=== PATIENT | male | born 1930 | race Caucasian/White ===

== ENCOUNTER 2016-03-09 18:23 | Emergency (ER) | payer MEDICARE, OTHER ==
[2016-03-09 18:56] VITALS: BP 158/82
--- NOTE | 2016-03-09 19:33 | ERNOTE ---
Medical Problem HPI - Narrative Date of Service: 03/09/16 - General Chief Complaint: Screening, Blood Pressure Time Seen by Provider: 03/09/16 18:49 Source: patient Exam Limitations: no limitations - Immun/Allergies/Home Medications Immunizations: IMMUNIZATION HX Immunizations Up to Date Yes History of Influenza Vaccine No Hx Pneumococcal Vaccination No Allergies/Adverse Reactions: Allergies Sulfa (Sulfonamide Antibiotics) Adverse Reaction (Verified 04/16/15 16:27) Home Medications: HOME MEDICATIONS Doxazosin Mesylate [Cardura Xl] 4 mg PO HS 09/21/13 [Last Taken Unknown] Finasteride [Proscar] 5 mg PO HS 09/21/13 [Last Taken Unknown] Timolol [Betimol] 1 drop OP DAILY 09/21/13 [Last Taken Unknown] metFORMIN HCL [Glucophage] 1,000 mg PO BID 09/21/13 [Last Taken Unknown] Atorvastatin Calcium 40 mg PO DAILY 02/27/15 [Last Taken Unknown] Clopidogrel Bisulfate [Plavix] 75 mg PO DAILY 02/27/15 [Last Taken Unknown] Aspirin [Aspirin Enteric Coated] 81 mg PO BID 04/16/15 [Last Taken Unknown] - History of Present History Narrative: Patient and his present together for BP check. he relates his BP was high at home. He denies Sx. Here his BP was initially taken over a sweater and a shirt. Once these were removed his BP was much improved. He denies Sx with this. BP 150s/80s. No CP or SOB. No abdominal pain. Sx free. Timing: gone now Severity: mild Modifying Factors - (Improves): Present: other - none Modifying Factors - (Worsens): Present: other - none Review of Systems - Review of Systems Constitutional: Absent: weakness Respiratory: Absent: shortness of breath Cardiology: Absent: chest pain Gastrointestinal/Abdominal: Absent: abdominal pain Neurological: Absent: weakness - Patient's Past Medical History Patient History - Medical: Diabetes Type 2 Patient History - Cardiac/Respiratory: Hypertension, TIA Patient History - Cancer: No Hx of Cancer Patient History - Surgical Procedures: Cataracts, Other - Social History Living Situations: spouse Smoking Status: Never smoker Alcohol Use: rarely Drug Use: none Physical Exam - Physical Exam General Appearance: Present: alert, no apparent distress Eye Exam: Normal inspection: bilateral, PERRL: bilateral Ears, Nose, Throat: Present: normal ENT inspection Neck: Present: normal inspection Respiratory: Present: no respiratory distress, normal breath sounds, no accessory muscle use, lungs clear Cardiovascular/Chest: Present: regular rate, rhythm, no murmur, normal peripheral pulses Peripheral Pulses: N=norm/S=strong/W=weak/B=bound/A=absent: Radial (R): Normal, Radial (L): Normal Gastrointestinal/Abdominal: Present: normal bowel sounds, nontender, soft. 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 Absent: motor weakness Skin Exam: Present: normal color ED Progress - Vital Signs Patient's Vital Signs:: I have reviewed the patient's vital signs. Vital Signs: Vital Signs 03/09/16 03/09/16 18:30 18:50 Temperature 36 C L Pulse Rate 77 72 Respiratory 14 Rate Blood Pressure 201/115 158/82 O2 Sat by Pulse 98 Oximetry - Progress/Reassessment Chief Complaint: Screening, Blood Pressure Progress:: Improved Progress Note-Subjective: 03/09/16 19:30 I believe his initial BP was high because it was taken over a long sleeve shirt and sweater. With these removed BP much improved. Given this and fact patient Sx free I do not feel labs or imaging indicated. If he develops Sx or things change he will need to return to have this re-addressed and I discussed this with him. I discussed warning signs and reasons to return as well as the need for close f/u. Departure - Departure Clinical Impression: Blood pressure check Disposition: Home self-care Condition: Stable Additional Instructions: Take your blood pressure at home twice per day and record it. See your doctor in 2 days to discuss your blood pressure readings and any need for further evaluation. Return here if you develop trouble breathing, weakness or if your condition worsens or changes in any way.
== END 2016-03-09 19:41 | disposition home or self-care (01) ==
LOC: ER 18:23
DX: Z13.6 Encounter for screening for cardiovascular disorders (principal); I10 Essential (primary) hypertension; E11.9 Type 2 diabetes mellitus without complications; Z86.73 Personal history of transient ischemic attack (TIA), and cerebral infarction without residual deficits

== ENCOUNTER 2016-04-01 14:38 | Emergency (ER) | payer MEDICARE, OTHER ==
[2016-04-01 15:08] LABS: Hematocrit 38.1 % (42.0-52.0); Mean Cell Volume 85.8 fl (78-100); Mean Corpuscular Hgb Conc 31.5 g/dl (32-36); Mean Platelet Volume 8.9 fl (6.0-9.5); Neutrophil # 3.7 K/mm3 (1.3-6.0); Neutrophil % 66.7 % (42-75.0); Platelet Count 162 K/mm3 (150-450); Red Blood Count 4.44 M/mm3 (4.7-6.0); Red Cell Distribution Width 13.9 % (11.5-14.0); White Blood Count 5.6 K/mm3 (4.0-10.5)
--- NOTE | 2016-04-01 15:08 | ERNOTE ---
Neuro HPI ER Record Date of Service: 04/01/16 Presenting Symptoms: impaired speech - here to bring to ER for rash when he began with slurred speech about 15 mins ago. Time Seen by Provider: 04/01/16 14:49 Source: patient, RN/MD Exam Limitations: no limitations Immunizations: IMMUNIZATION HX Immunizations Up to Date Yes History of Influenza Vaccine No Hx Pneumococcal Vaccination No Allergies/Adverse Reactions: Allergies Allergy/AdvReac Type Severity Reaction Status Date / Time Sulfa (Sulfonamide AdvReac Verified 04/16/15 16:27 Antibiotics) Home Medications: HOME MEDICATIONS Doxazosin Mesylate [Cardura Xl] 4 mg PO HS 09/21/13 [Last Taken Unknown] Finasteride [Proscar] 5 mg PO HS 09/21/13 [Last Taken Unknown] Timolol [Betimol] 1 drop OP DAILY 09/21/13 [Last Taken Unknown] metFORMIN HCL [Glucophage] 1,000 mg PO BID 09/21/13 [Last Taken Unknown] Atorvastatin Calcium 40 mg PO DAILY 02/27/15 [Last Taken Unknown] Clopidogrel Bisulfate [Plavix] 75 mg PO DAILY 02/27/15 [Last Taken Unknown] Aspirin [Aspirin Enteric Coated] 81 mg PO BID 04/16/15 [Last Taken Unknown] - History of Present Illness Narrative: Pt here in the ER as he came with his who had a rash, when the nurse noted he had sudden onset of slurred speech with some confusion about 15 mins ago now. She started a Stroke Protocol and pt. went immediately for head CT from which he has just returned. RN says he seems much better already but still with some slurred speech and mild confusion as to month. he says he has hx of TIA's , maybe 3-4, but none in the past year or so. No h.a. , no trauma, and denies any weakness or altered sensation. - Patient's Past Medical History Patient History - Medical: Diabetes Type 2 Patient History - Cardiac/Respiratory: TIA Patient History - Cancer: No Hx of Cancer Patient History - Surgical Procedures: Cataracts, Other Patient History - Other: None - Social History Living Situations: home Abuse History: No History of abuse Psych History: No pertinent hx Alcohol Use: rarely Drug Use: none - Immunizations Immunizations Up to Date: Yes Hx Pneumococcal Vaccination: No History of Influenza Vaccine: No ED Progress - Vital Signs Vital Signs: Vital Signs 04/01/16 14:52 Temperature 36.6 C Pulse Rate 75 Respiratory 22 H Rate Blood Pressure 133/67 O2 Sat by Pulse 96 Oximetry - X-Ray X-Ray #1 X-Ray: chest Interpretation: Reviewed by me - CT/Ultrasound CT/Ultrasound Narrative: [facility] PATIENT RADIOLOGY STUDY REPORT Patient Patient Name:LUCILA ADAMS JR Date: 1930 Sex: M Order Number: [id number] Unique Exam ID: [id number] Exam Requested: HEADW/O - CT Head W/O Contrast * Date Scheduled: Study Priority: Requesting Service: Requesting Physician: Geovany Carson Reason for Exam: Radiological Report : Exam Date: 04/01/2016 14:46 Ordering Physician: Geovany Carson HISTORY: Intermittent confusion with difficulty talking. CVA alert. UNENHANCED CT SCAN OF THE BRAIN Comparison: 04/16/2015. Correlation is also made with a prior MRI of the brain dated 02/28/2015. Technique: Multiple axial images were obtained through the brain without the use of IV contrast. Findings: The lateral ventricles and sulci are symmetric and within normal limits for the patient's age. 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 I do not see evidence for acute blood , extra-axial collection, or mass effect. I do not see evidence for chronic cortical or definable acute cortical infarction. Again seen is a partially calcified meningioma extending superiorly from the anterior left middle fossa. This measures approximately 3.9 x 2.7 cm (transverse times AP) and is essentially unchanged. The 3rd and 4th ventricles are midline and are of normal size. There is some streak artifact in the posterior fossa, but the cerebellum and visualized charla appear normal. The frontal, ethmoid, sphenoid, and visualized maxillary sinuses are clear. The mastoid air cells and middle ears appear to be normally aerated. Bone windows demonstrate no evidence for fracture. I do not see evidence for significant soft tissue swelling overlying the calvarium. IMPRESSION: 1. NO ACUTE INTRACRANIAL PROCESS. 2. 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 3. 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 4. RESULTS CALLED EMERGENCY ROOM PHYSICIAN (DR. CARSON) ON 2016 AT 1459 HOURS. Electronically signed by Priyank Morrow M.D.. - Progress/Reassessment Chief Complaint: CerebroVascular Accident Progress:: Re-examined - no slurring . still faint right lower facial droop. Progress Note-Subjective: 04/01/16 16:41 I talked with his HEAD LIBRARIAN , Dr. Machuca, who says he knows him well and that he has had this problem at least 3 times before and that given his history and current findings he is ok to go home to follow up with him next week. The pt. says he has an appointment next already. Plan - Plan Plan: pt will be discharged home to follow up as an outpt with his HEAD LIBRARIAN. Since he drove we will find an alternative for them to get home. Departure Clinical Impression: TIA on medication - Departure Disposition: Home Follow Up Needed Condition: Fair Instructions: Transient Ischemic Attack, [id number] Additional Instructions: Resume your regular meds and follow up with your primary doctor next week as planned. Return to the ER if worse.
[2016-04-01 15:14] LABS: Albumin * 3.3 gm/dl (3.4-5.0); Anion Gap 11.8 mmol/L (6.8-13.8); BUN/Creatinine Ratio 19.5 (9.0-21.6); Ca. Corrected For Albumin 8.9 mg/dL (8.4-10.2); Calcium * 8.7 mg/dL (7.9-10.9); Carbon Dioxide 29.4 mmol/L (24-32.6); Potassium 4.2 mmol/L (3.4-4.6)
[2016-04-01 15:15] LABS: Total Protein 6.3 gm/dL (6.2-8.2)
[2016-04-01 15:17] LABS: Bilirubin, Total 0.4 mg/dL (0.0-1.1); Prothrombin Time (Patient) 10.7 Seconds (9.4-11.4)
[2016-04-01 15:18] LABS: INR 1.03 INR (0.90-1.10); Partial Thrombolplastin Time 25.2 Seconds (24-32)
--- OUTSIDE RECORDS SUMMARY | 2016-04-01 15:26 | XMS REPORT | Continuity of Care Document ---
:1930 Author Organization [facility] [place] [address] Care Team Providers Name Role Phone SvenShayan grajeda Primary Care Provider [phone] Source Comments This disclosure is being made pursuant to the [employer] Locate program and maynot contain all information available regarding this patient.[facility] Active Allergies and Adverse Reactions Allergen Noted Date Severity Reactions Comments Sulfa Antibiotics 07/01/2014 Other (See Comments) Current Medications Be aware that medications may not be up to date as of this document. Alwaysverify current medications with the patient. Prescription Sig. Disp. Refills Start Date End Date Status metformin (GLUCOPHAGE) Take 1,000 mg by Active 1000 MG tablet mouth 2 (two) times daily with meals. finasteride (PROSCAR) 5 Take 5 mg by mouth Active MG tablet daily. doxazosin (CARDURA) 4 MG Take 4 mg by mouth Active tablet nightly. lisinopril-hydrochlorothi Take 1 tablet by Active azide mouth daily. (PRINZIDE,ZESTORETIC) 10-12.5 MG per tablet timolol (BETIMOL) 0.5 % 1 drop 2 (two) Active ophthalmic solution times daily. aspirin 81 MG EC tablet Take 81 mg by mouth Active daily. clopidogrel (PLAVIX) 75 Take 75 mg by mouth Active MG tablet daily. Active Problems Not on file Most Recent Encounters Date Type Specialty Providers Description 01/29/2016 Data Import 01/29/2016 Data Import Social History Tobacco Use Types Packs/Day Years Used Date Former Smoker Alcohol Use Drinks/Week oz/Week Comments No Last Filed Vital Signs Vital Sign Reading Time Taken Blood Pressure 179/81 07/01/2014 10:42 PM CDT Pulse 72 07/01/2014 10:42 PM CDT Temperature 36.8 C (98.2 F) 07/01/2014 10:42 PM CDT Respiratory Rate 18 07/01/2014 10:42 PM CDT Height 1.727 m (5' 7.99") 07/01/2014 9:42 PM CDT Weight 84.823 kg (187 lb) 07/01/2014 9:42 PM CDT Body Mass Index 28.44 07/01/2014 9:42 PM CDT Oxygen Saturation 97% 07/01/2014 10:15 PM CDT Plan of Care Health Maintenance Due Date Last Done Comments Tetanus/Pertussis (1 - Tdap) 05[birth year]17/1947 Well Adult Visit 1978 Zoster Vaccine 60+ 1988 Pneumococcal Low/Medium Risk 65+ (1 of 2 - PCV13) 1993 Influenza Immunization (#1) 2015 Results from Last 3 Months Not on file
--- OUTSIDE RECORDS SUMMARY | 2016-04-01 15:26 | XMS REPORT | Continuity of Care Document ---
:1930 Author Organization [facility] ([facility]) Address [address] [place] [address] Phone [phone] Care Team Providers Name Role Phone Shayan Machuca Primary Care Provider [phone] Source Comments This disclosure is being made pursuant to the Care Everywhere program, applicable federal and state laws, and may not contain all informaitonavailable regarding this patient.[facility] ([facility]) Active Allergies and Adverse Reactions Allergen Noted Date Severity Reactions Comments Sulfadoxine Urticaria (Hives) Current Medications Prescription Sig. Disp. Refills Start Date End Date Status metformin (GLUCOPHAGE) take 1,000 mg by Active 1,000 mg tablet mouth 2 times daily with meals. finasteride (PROSCAR) 5 take 5 mg by mouth Active mg tablet daily. doxazosin (CARDURA) 4 mg take 4 mg by mouth Active tablet daily. timolol (BETIMOL) 0.5 % Instill 1 Drop onto Active ophthalmic solution both eyes daily CLOPIDOGREL 75 mg tablet Take 75 mg by mouth 11 06/24/2014 Active daily atorvastatin 40 mg Take 1 Tab (40 mg 30 Tab 11 07/03/2014 Active tablet total) by mouth daily aspirin 81 mg chewable Take 243 mg by Active tablet mouth daily. Active Problems Problem Noted Date Acute ischemic left MCA stroke 07/03/2014 Overview: -received stroke workup. holter monitor on dc Aphasia 07/02/2014 Transient ischemic attack involving carotid artery 07/02/2014 Meningioma 01/19/2012 Other conditions of brain 02/09/2007 Swelling, mass, or lump in head and neck 02/09/2007 Social History Tobacco Use Types Packs/Day Years Used Date Never Smoker Smokeless Tobacco: Never Used Tobacco Cessation:Counseling Given: Yes Comments: Alcohol Use Drinks/Week oz/Week Comments Yes occasional beer Last Filed Vital Signs Vital Sign Reading Time Taken Blood Pressure 134/67 2015 11:27 AM CDT Pulse 86 2015 11:27 AM CDT Temperature 36.9 C (98.4 F) 01/20/2015 1:33 PM [employer]RO[employer]PER[employer] Respiratory Rate 18 07/02/2014 8:30 AM CDT Height 1.727 m (5' 8") 2015 11:27 AM CDT Weight 94.031 kg (207 lb 4.8 oz) 2015 11:27 AM CDT Body Mass Index 31.53 2015 11:27 AM CDT Oxygen Saturation 97% 07/04/2014 12:00 PM CDT Plan of Care Date Type Specialty Providers Description 05/03/2016 Appointment Radiology Chief Comp: Patient Reported Reason For Visit 05/03/2016 Appointment Neurosurgery Maikel Tate III, Chief Comp: Patient MD Reported Reason For Visit [address] [phone] (Fax) Health Maintenance Due Date Last Done Comments Hepatitis B Vaccine (1 of 3 - Primary Series) 1930 Tdap Vaccine 05/17/1939 Td Vaccine 1948 Zoster Vaccine 1988 Pneumococcal Vaccine (1 of 2 - PCV13) 1993 Influenza Vaccine: Seasonal (#1) 09/15/2015 Lipid Disorder Screening 07/04/2019 07/03/2014 Results from Last 3 Months Not on file
[2016-04-01 16:58] VITALS: BP 134/73
== END 2016-04-01 16:47 | disposition home or self-care (01) ==
LOC: ER 14:38
DX: G45.9 Transient cerebral ischemic attack, unspecified (principal); Z79.02 Long term (current) use of antithrombotics/antiplatelets

== ENCOUNTER 2017-01-13 16:41 | Emergency (ER) | payer MEDICARE, OTHER ==
[2017-01-13 16:57] VITALS: BP 148/92
== END 2017-01-13 17:29 | disposition left against medical advice (07) ==
LOC: ER 16:41
DX: Z13.6 Encounter for screening for cardiovascular disorders (principal)

== ENCOUNTER 2017-11-22 14:34 | Inpatient (IN) | payer MEDICARE, OTHER ==
--- NOTE | 2017-11-22 14:45 | ERNOTE ---
Neuro HPI ER Record Presenting Symptoms: confusion Time Seen by Provider: 11/22/17 14:35 Source: family, EMS Exam Limitations: clinical condition Immunizations: IMMUNIZATION HX Immunizations Up to Date Yes History of Influenza Vaccine No Hx Pneumococcal Vaccination Yes Allergies/Adverse Reactions: Allergies Allergy/AdvReac Type Severity Reaction Status Date / Time Sulfa (Sulfonamide AdvReac Verified 11/22/17 14:52 Antibiotics) Home Medications: HOME MEDICATIONS Doxazosin Mesylate [Cardura Xl] 4 mg PO HS 09/21/13 [Last Taken Unknown] Finasteride [Proscar] 5 mg PO HS 09/21/13 [Last Taken Unknown] Timolol [Betimol] 1 drp OP DAILY 09/21/13 [Last Taken Unknown] Atorvastatin Calcium 40 mg PO DAILY 02/27/15 [Last Taken Unknown] metformin 500 mg tablet 1,000 mg PO BID #360 tab 10/14/17 [Last Taken Unknown] aspirin 81 mg tablet,delayed release 81 mg PO DAILY tab 10/20/17 [Last Taken Unknown] lisinopril 10 mg tablet 10 mg PO DAILY #90 tab 10/20/17 [Last Taken Unknown] clopidogrel 75 mg tablet 75 mg PO DAILY #90 tab 10/31/17 [Last Taken Unknown] - History of Present Illness Narrative: Patient appears to suffer from a stroke sometime in the night. He is unable to answer any questions or respond in any meaningful way. Patient needed help getting undressed. Onset: cannot confirm onset Severity: moderate - Character of Deficits Additional Deficits: Present: impaired speech Baseline Cognition: Present: alert, oriented x 4 Baseline Gait: Present: walks w/o assistance Associated Symptoms: Reports: none Review of Systems - Review of Systems Constitutional: Present: See HPI EYE: Present: no symptoms reported ENT: Present: no symptoms reported Respiratory: Present: no symptoms reported Cardiology: Present: no symptoms reported Gastrointestinal/Abdominal: Present: no symptoms reported Genitourinary: Present: no symptoms reported Musculoskeletal: Present: no symptoms reported Skin: Present: no symptoms reported Neurological: Present: See HPI Endocrine: Present: no symptoms reported Hematologic/Lymphatic: Present: no symptoms reported Psych: Present: no symptoms reported 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) Onset Date: Unknown Essential hypertension (Chronic) Onset Date: Unknown Diabetes mellitus type II, controlled (Chronic) Onset Date: Unknown Brain tumor (Chronic) Onset Date: Unknown Wears dentures Wears glasses Acute ischemic left MCA stroke Onset Date: ~07/02/14 Olecranon bursitis Onset Date: ~08/08/14 TIA (transient ischemic attack) Onset Date: ~07/02/14 Surgical History: Surgical History (Last Reviewed 11/22/17 @ 14:52 by Malia Oreilly RN) H/O bilateral cataract extraction Onset Date: Unknown H/O eye surgery Onset Date: Unknown History of lung surgery Onset Date: Unknown Family History: Family History (Last Reviewed 11/22/17 @ 14:52 by Malia Oreilly RN) Father Unknown family medical history Mother Unknown family medical history Social History: Preferred Language Irish Smoking Status Former smoker Abuse History No History of abuse Psych History No pertinent hx Physical Exam - Physical Exam General Appearance: Present: wd/wn, alert, moderate distress Head Exam: Present: normal inspection, no evidence of injury Eye Exam: Normal inspection: bilateral, PERRL: bilateral Ears, Nose, Throat: Present: normal ENT inspection, H, normal pharynx Neck: Present: normal inspection, nontender Respiratory: Present: no respiratory distress, normal breath sounds, no accessory muscle use, chest nontender, lungs clear Cardiovascular/Chest: Present: regular rate, rhythm, no murmur, normal peripheral pulses Gastrointestinal/Abdominal: Present: normal bowel sounds, nontender, nondistended, soft, no organomegaly Rectal Exam: Present: deferred Male Genitals Exam: Present: deferred Back Exam: Present: normal inspection, normal range of motion Extremity Exam: Present: normal inspection, non-tender, no edema, normal range of motion Neurological Exam: Present: disoriented to person, disoriented to time, disoriented to place, disoriented to situation Skin Exam: Present: normal color, warm/dry Lymphatic Exam: Present: no adenopathy ED Progress - Results and Orders Patient's Lab Results:: I have reviewed the patient's lab results. - Vital Signs Patient's Vital Signs:: I have reviewed the patient's vital signs. - EKG EKG: NSR EKG read: Reviewed by me - X-Ray X-Ray #1 X-Ray: chest Interpretation: Reviewed by me - CT/Ultrasound CT/Ultrasound Narrative: CT the head reviewed by me - Transfer of Care Expected Disposition: Admit Plan - Plan Plan: Patient will need to be admitted for further stroke evaluation. While TPA was considered, we do not have an onset time of symptoms. The stroke could've happened over 18 hours ago which makes him not a candidate for TPA. Departure Clinical Impression: CVA (cerebral vascular accident) Qualifiers: CVA mechanism: unspecified Qualified Code(s): I63.9 - Cerebral infarction, unspecified - Departure Disposition: Still a patient Condition: Fair Referrals: Shayan Machuca MD [Primary Care Provider] -
[2017-11-22 15:01] LABS: Hematocrit 38.4 % (42.0-52.0); Mean Cell Volume 86.9 fl (78-100); Mean Corpuscular Hemoglobin 27.1 pg (27-31); Mean Corpuscular Hgb Conc 31.3 g/dl (32-36); Mean Platelet Volume 8.8 fl (8-11.3); Neutrophil % 57.2 % (42-75.0); Platelet Count 141 K/mm3 (150-450); Red Blood Count 4.42 M/mm3 (4.7-6.0); Red Cell Distribution Width 14.6 % (11.5-14.0); White Blood Count 3.5 K/mm3 (4.0-10.5)
[2017-11-22 15:12] LABS: Albumin * 3.1 gm/dl (3.4-5.0); Anion Gap 8.2 mmol/L (6.8-13.8); BUN/Creatinine Ratio 16.3 (9.0-21.6); Bilirubin, Total 0.5 mg/dL (0.0-1.1); Ca. Corrected For Albumin 8.7 mg/dL (8.4-10.2); Calcium * 8.3 mg/dL (7.9-10.9); Carbon Dioxide 30.7 mmol/L (24-32.6); Potassium 3.9 mmol/L (3.4-4.6); Total Protein 6.2 gm/dL (6.2-8.2)
[2017-11-22 15:19] LABS: Prothrombin Time (Patient) 9.7 Seconds (9.0-11.0)
[2017-11-22 15:20] LABS: INR 0.97 INR (0.90-1.10); Partial Thrombolplastin Time 23.3 Seconds (24-32)
--- NOTE | 2017-11-22 17:12 | HP ---
Chief Complaint - Chief Complaint Date of Service: 11/22/17 Time of Service: 16:55 Chief Complaint: altered mental status History of Present Illness: Robert Munguia is an 87-year-old white male, patient of Dr. 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 I am not able to get any history from but this history is based on the son in law narration. The son-in-law and his went to the patient's house at around 2 PM today and the patient opened the door, however, the patient was speaking gibberish and nonsense. They sat him down and he was just staring blank and was not able to converse with them. As per his son-in- law , his told him that her sister called the patient last night around 10 PM and he was fine. The son says that he usually gets out of the house around 8 AM to visit his in the halfway who also has a stroke and comes home around 9 PM. He feels since the patient was all dressed up when they got to his home that this happened after 8 AM. In the emergency room the emergency room physician could not get any history from him. His CT scan of the head without contrast showed no acute intracranial process except for a stable calcified meningioma. He was then admitted for further evaluation and treatment. 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) Onset Date: Unknown Essential hypertension (Chronic) Onset Date: Unknown Diabetes mellitus type II, controlled (Chronic) Onset Date: Unknown Brain tumor (Chronic) Onset Date: Unknown Wears dentures Wears glasses Acute ischemic left MCA stroke Onset Date: ~07/02/14 Olecranon bursitis Onset Date: ~08/08/14 TIA (transient ischemic attack) Onset Date: ~07/02/14 Surgical History: Surgical History (Last Reviewed 11/22/17 @ 14:52 by Malia Oreilly RN) H/O bilateral cataract extraction Onset Date: Unknown H/O eye surgery Onset Date: Unknown History of lung surgery Onset Date: Unknown Family History: Family History (Last Reviewed 11/22/17 @ 14:52 by Malia Oreilly RN) Father Unknown family medical history Mother Unknown family medical history Social History: Patient Lives/Resources Home Utilized Preferred Language Mohawk Do you have any rastafarian or Yes: Buddhism cultural preference? Smoking Status Never smoker Have you smoked in the past 12 No months Abuse History No History of abuse Psych History No pertinent hx Alcohol Use none Drug Use none Review Of Systems (GEN) - Review of Systems Additional Comments: Unable to get ROS due to altered mental status Immunizations: IMMUNIZATION HX Immunizations Up to Date Yes History of Influenza Vaccine No Hx Pneumococcal Vaccination Yes Allergies/Adverse Reactions: Allergies Allergy/AdvReac Type Severity Reaction Status Date / Time Sulfa (Sulfonamide AdvReac Verified 11/22/17 14:52 Antibiotics) Home Medications: HOME MEDICATIONS Doxazosin Mesylate [Cardura Xl] 4 mg PO HS 09/21/13 [Last Taken Unknown] Finasteride [Proscar] 5 mg PO HS 09/21/13 [Last Taken Unknown] Timolol [Betimol] 1 drp OP DAILY 09/21/13 [Last Taken Unknown] Atorvastatin Calcium 40 mg PO DAILY 02/27/15 [Last Taken Unknown] metformin 500 mg tablet 1,000 mg PO BID #360 tab 10/14/17 [Last Taken Unknown] aspirin 81 mg tablet,delayed release 81 mg PO DAILY tab 10/20/17 [Last Taken Unknown] lisinopril 10 mg tablet 10 mg PO DAILY #90 tab 10/20/17 [Last Taken Unknown] clopidogrel 75 mg tablet 75 mg PO DAILY #90 tab 10/31/17 [Last Taken Unknown] Exam - Exam Vital Signs: Vital Signs - Last Taken Temp 37.1 C 11/22/17 16:22 Pulse 78 11/22/17 16:22 Resp 23 H 11/22/17 16:22 BP 168/92 H 11/22/17 16:22 Pulse Ox 97 11/22/17 16:22 Constitutional: Present: Alert - x 1, Cooperative, Elderly ENT Exam: Present: hearing grossly normal Eye Exam: bilateral eye: other - unable to examine as he closes his eyes each time I try to do so Neck: Present: supple Respiratory: Present: decreased breath sounds, No rales, No wheezing Cardiovascular/Chest: Present: regular rate, rhythm, no JVD, no murmur Abdomen: Present: Normal bowel sounds, soft, nontender, nondistended Extremity: Present: no pedal edema - AAO x 1, positive subtle facial assymetry , will not put out his tongue, grossly moves his 4 exremities, no difference on manager recruitment strength, reflexes +2, no calf tenderness Diagnostic Studies: Abnormal Lab Results 11/22/17 11/22/17 11/22/17 Range/Units 14:54 14:54 14:54 WBC 3.5 L (4.0-10.5) K/mm3 RBC 4.42 L (4.7-6.0) M/mm3 Hgb 12.0 L (13.5-18.0) gm/dL Hct 38.4 L (42.0-52.0) % MCHC 31.3 L (32-36) g/dl RDW 14.6 H (11.5-14.0) % Plt Count 141 L (150-450) K/mm3 Immature Gran % (Auto) 0.60 H (0.001-0.429) % Monocytes % 16.4 H (0.0-9) % Lymphocytes # 0.85 L (1.5-3.5) k/mm3 ESR 15 H (0-10) mm/hr PTT (Tiff) 23.3 L (24-32) Seconds BUN (6-23) mg/dL Creatinine (0.4-1.4) mg/dL Est GFR (Non-Af Amer) (60-130) mL/min Random Glucose (70-110) mg/dL ALT (19-67) U/L Albumin (3.4-5.0) gm/dl 11/22/17 Range/Units 14:54 WBC (4.0-10.5) K/mm3 RBC (4.7-6.0) M/mm3 Hgb (13.5-18.0) gm/dL Hct (42.0-52.0) % MCHC (32-36) g/dl RDW (11.5-14.0) % Plt Count (150-450) K/mm3 Immature Gran % (Auto) (0.001-0.429) % Monocytes % (0.0-9) % Lymphocytes # (1.5-3.5) k/mm3 ESR (0-10) mm/hr PTT (Tiff) (24-32) Seconds BUN 24 H (6-23) mg/dL Creatinine 1.47 H (0.4-1.4) mg/dL Est GFR (Non-Af Amer) 48 L (60-130) mL/min Random Glucose 151 H (70-110) mg/dL ALT 13 L (19-67) U/L Albumin 3.1 L (3.4-5.0) gm/dl Laboratory Results WBC 3.5 K/mm3 (4.0-10.5) L 11/22/17 14:54 RBC 4.42 M/mm3 (4.7-6.0) L 11/22/17 14:54 Hgb 12.0 gm/dL (13.5-18.0) L 11/22/17 14:54 Hct 38.4 % (42.0-52.0) L 11/22/17 14:54 MCV 86.9 fl (78-100) 11/22/17 14:54 MCH 27.1 pg (27-31) 11/22/17 14:54 MCHC 31.3 g/dl (32-36) L 11/22/17 14:54 RDW 14.6 % (11.5-14.0) H 11/22/17 14:54 Plt Count 141 K/mm3 (150-450) L 11/22/17 14:54 MPV 8.8 fl (8-11.3) 11/22/17 14:54 Immature Gran % (Auto) 0.60 % (0.001-0.429) H 11/22/17 14:54 Immature Gran # (Auto) 0.02 K/mm3 (0.000-0.0310) 11/22/17 14:54 Neutrophils % 57.2 % (42-75.0) 11/22/17 14:54 Lymphocytes % 24.4 % (20-51) 11/22/17 14:54 Monocytes % 16.4 % (0.0-9) H 11/22/17 14:54 Eosinophils % 1.1 % (0.0-3.0) 11/22/17 14:54 Basophils % 0.3 % (0.0-1.0) 11/22/17 14:54 Nucleated RBC % 0.0 k/mm3 (0-1) 11/22/17 14:54 Neutrophils # 2.0 K/mm3 (1.3-6.0) 11/22/17 14:54 Lymphocytes # 0.85 k/mm3 (1.5-3.5) L 11/22/17 14:54 Monocytes # 0.6 k/mm3 (0.0-1.0) 11/22/17 14:54 Eosinophils # 0.0 k/mm3 (0.0-0.7) 11/22/17 14:54 Absolute Basophils 0.0 k/mm3 (0.0-0.1) 11/22/17 14:54 ESR 15 mm/hr (0-10) H 11/22/17 14:54 PT 9.7 Seconds (9.0-11.0) 11/22/17 14:54 INR (Anticoag Therapy) 0.97 INR (0.90-1.10) 11/22/17 14:54 PTT (Tiff) 23.3 Seconds (24-32) L 11/22/17 14:54 Sodium 140 mmol/L (132-142) 11/22/17 14:54 Plasma Sodium 141 mmol/L (130-142) 11/22/17 14:54 Potassium 3.9 mmol/L (3.4-4.6) 11/22/17 14:54 Chloride 105 mmol/L (97-106) 11/22/17 14:54 Carbon Dioxide 30.7 mmol/L (24-32.6) 11/22/17 14:54 Anion Gap 8.2 mmol/L (6.8-13.8) 11/22/17 14:54 BUN 24 mg/dL (6-23) H 11/22/17 14:54 Creatinine 1.47 mg/dL (0.4-1.4) H 11/22/17 14:54 Est GFR (Non-Af Amer) 48 mL/min (60-130) L 11/22/17 14:54 BUN/Creatinine Ratio 16.3 (9.0-21.6) 11/22/17 14:54 Random Glucose 151 mg/dL (70-110) H 11/22/17 14:54 Calcium 8.3 mg/dL (7.9-10.9) 11/22/17 14:54 Calcium Adj for Albumin 8.7 mg/dL (8.4-10.2) 11/22/17 14:54 Total Bilirubin 0.5 mg/dL (0.0-1.1) 11/22/17 14:54 AST 14 U/L (0-48) 11/22/17 14:54 ALT 13 U/L (19-67) L 11/22/17 14:54 Alkaline Phosphatase 63 U/L (50-170) 11/22/17 14:54 Total Protein 6.2 gm/dL (6.2-8.2) 11/22/17 14:54 Albumin 3.1 gm/dl (3.4-5.0) L 11/22/17 14:54 Assessment/Plan - Assessment/Plan (1) CVA (cerebral vascular accident) Assessment: with dyspraxia. will get MRI in the morning, will do CUS, Echo with bubble study. will refer him to PT/OT. 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
[2017-11-22] MEDS: DEXTROSE 5%-0.5 NORMAL SALINE 1,000 ML IV PRN (19:00)
[2017-11-22] MEDS: FINASTERIDE 5 MG TABLET PO SCH (22:13)
[2017-11-23] MEDS: DEXTROSE 5%-0.5 NORMAL SALINE 1,000 ML IV PRN ×2 (06:55→21:14)
[2017-11-23] MEDS: DOXAZOSIN MESYLATE 2 MG TABLET PO SCH ×2 (08:39→20:01)
--- NOTE | 2017-11-23 08:47 | PN ---
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 Objective - Review of Systems Misc: All systems neg except as marked - Unable to obtain due to AMS - Vitals Vitals: Last Vital Signs Temp 37.1 C 11/23/17 08:30 Pulse 71 11/23/17 08:30 Resp 18 11/23/17 08:30 BP 172/85 H 11/23/17 08:30 Pulse Ox 93 11/23/17 08:30 - Abnormal Lab Findings Abnormal Lab Findings: Abnormal Lab Results 11/22/17 11/22/17 11/22/17 Range/Units 14:54 14:54 14:54 WBC 3.5 L (4.0-10.5) K/mm3 RBC 4.42 L (4.7-6.0) M/mm3 Hgb 12.0 L (13.5-18.0) gm/dL Hct 38.4 L (42.0-52.0) % MCHC 31.3 L (32-36) g/dl RDW 14.6 H (11.5-14.0) % Plt Count 141 L (150-450) K/mm3 Immature Gran % (Auto) 0.60 H (0.001-0.429) % Monocytes % 16.4 H (0.0-9) % Lymphocytes # 0.85 L (1.5-3.5) k/mm3 ESR 15 H (0-10) mm/hr PTT (Tiff) 23.3 L (24-32) Seconds BUN (6-23) mg/dL Creatinine (0.4-1.4) mg/dL Est GFR (Non-Af Amer) (60-130) mL/min Random Glucose (70-110) mg/dL ALT (19-67) U/L Albumin (3.4-5.0) gm/dl 11/22/17 Range/Units 14:54 WBC (4.0-10.5) K/mm3 RBC (4.7-6.0) M/mm3 Hgb (13.5-18.0) gm/dL Hct (42.0-52.0) % MCHC (32-36) g/dl RDW (11.5-14.0) % Plt Count (150-450) K/mm3 Immature Gran % (Auto) (0.001-0.429) % Monocytes % (0.0-9) % Lymphocytes # (1.5-3.5) k/mm3 ESR (0-10) mm/hr PTT (Tiff) (24-32) Seconds BUN 24 H (6-23) mg/dL Creatinine 1.47 H (0.4-1.4) mg/dL Est GFR (Non-Af Amer) 48 L (60-130) mL/min Random Glucose 151 H (70-110) mg/dL ALT 13 L (19-67) U/L Albumin 3.1 L (3.4-5.0) gm/dl - Exam Constitutional: Present: Alert - AAO x 1, Elderly ENT Exam: Present: hearing grossly normal Neck: Present: supple Respiratory: Present: normal breath sounds, No rales, No wheezing Cardiovascular/Chest: Present: regular rate, rhythm, no JVD, no murmur Abdomen: Present: Normal bowel sounds, soft, nontender, nondistended Extremity: Present: no pedal edema, no calf tenderness Neurologic: Present: other - AAO x 1 , aphasic, subtle facial assymetry, no gross motor/sensory deficit Assessment/Plan - Problems/Diagnosis (1) CVA (cerebral vascular accident) Problem: Acute Qualifiers: CVA mechanism: unspecified Qualified Code(s): I63.9 - Cerebral infarction, unspecified Narrative: had his MRI and CUS, continue with ASA/plavix. Echo with bubble study pending, for PT/OT/St eval and tx today. ADDENDUM: MRI showed Acute infarct at left frontal lobe, CUS showed 50 % stenosis but is not sure if due to tortuosity, Echo showed negative bubble study. Discussed case and results with Dr. 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 avoid bringing down BP to low with the acute phase of CVA. (4) Diabetes mellitus type II, controlled Problem: Chronic Qualifiers:
[2017-11-23] MEDS ORDERED: LISINOPRIL 20 MG TABLET PO SCH (09:00)
[2017-11-23] MEDS ORDERED: LISINOPRIL 10 MG TABLET PO SCH (09:00)
[2017-11-23] MEDS ORDERED: ROSUVASTATIN CALCIUM 20 MG TABLET PO SCH (09:00)
[2017-11-23] MEDS: ASPIRIN 81 MG TABLET.DR PO SCH (09:59)
[2017-11-23] MEDS: CLOPIDOGREL BISULFATE 75 MG TABLET PO SCH (09:59)
[2017-11-23] MEDS: ENOXAPARIN SODIUM 40 MG/0.4 ML SYRG SC SCH (17:06)
[2017-11-23] MEDS: FINASTERIDE 5 MG TABLET PO SCH (20:00)
[2017-11-23] MEDS: ROSUVASTATIN CALCIUM 20 MG TABLET PO SCH (20:00)
[2017-11-24 05:27] LABS: Hematocrit 35.6 % (42.0-52.0); Hemoglobin 11.2 gm/dL (13.5-18.0); Mean Cell Volume 85.4 fl (78-100); Mean Corpuscular Hemoglobin 26.9 pg (27-31); Mean Corpuscular Hgb Conc 31.5 g/dl (32-36); Mean Platelet Volume 9.2 fl (8-11.3); Neutrophil # 4.4 K/mm3 (1.3-6.0); Neutrophil % 74.7 % (42-75.0); Platelet Count 146 K/mm3 (150-450); Red Blood Count 4.17 M/mm3 (4.7-6.0); Red Cell Distribution Width 14.2 % (11.5-14.0); White Blood Count 5.9 K/mm3 (4.0-10.5)
[2017-11-24 05:48] LABS: Anion Gap 7.9 mmol/L (6.8-13.8); BUN/Creatinine Ratio 13.7 (9.0-21.6); CRP 2.6 mg/dL (0.0-0.9); Calcium * 7.9 mg/dL (7.9-10.9); Carbon Dioxide 28.5 mmol/L (24-32.6); Chol/HDL Risk Ratio 2.3 mg/dL (3.3-5.0); Estimated Creat Clear 41.8; Potassium 3.4 mmol/L (3.4-4.6)
[2017-11-24] MEDS: LISINOPRIL 10 MG TABLET PO SCH (08:49)
[2017-11-24] MEDS: ASPIRIN 81 MG TABLET.DR PO SCH (08:49)
[2017-11-24] MEDS: CLOPIDOGREL BISULFATE 75 MG TABLET PO SCH (08:49)
--- NOTE | 2017-11-24 10:09 | PN ---
Progess Note - Interim Date: 11/24/17 Time: 10:08 Narrative: 11/24/17 10:08 [facility] Inpatient rehab has no vacancy. Awaiting return call from [place].
--- NOTE | 2017-11-24 10:31 | ECHO ---
This report is available in the EMR
[2017-11-24] MEDS: DEXTROSE 5%-0.5 NORMAL SALINE 1,000 ML IV PRN (11:29)
[2017-11-24] MEDS: ENOXAPARIN SODIUM 40 MG/0.4 ML SYRG SC SCH (16:14)
--- NOTE | 2017-11-24 17:41 | PN ---
Subjective - Date and Time Seen Date: 11/24/17 Time: 17:37 Subjective Narrative: patient is AAO x 1. Follows commands. Objective - Review of Systems Misc: All systems neg except as marked - Still unable to obtain ROS - Vitals Vitals: Last Vital Signs Temp 37.1 C 11/24/17 15:56 Pulse 86 11/24/17 15:56 Resp 18 11/24/17 15:56 BP 136/68 11/24/17 15:56 Pulse Ox 97 11/24/17 15:56 - Abnormal Lab Findings Abnormal Lab Findings: Abnormal Lab Results 11/24/17 11/24/17 Range/Units 05:16 05:16 RBC 4.17 L (4.7-6.0) M/mm3 Hgb 11.2 L (13.5-18.0) gm/dL Hct 35.6 L (42.0-52.0) % MCH 26.9 L (27-31) pg MCHC 31.5 L (32-36) g/dl RDW 14.2 H (11.5-14.0) % Plt Count 146 L (150-450) K/mm3 Lymphocytes % 13.9 L (20-51) % Lymphocytes # 0.82 L (1.5-3.5) k/mm3 Est GFR (Non-Af Amer) 58 L D (60-130) mL/min Random Glucose 159 H (70-110) mg/dL C-Reactive Prot, Quant 2.6 H (0.0-0.9) mg/dL LDL Cholesterol 50 L (70-130) mg/dL Cholesterol/HDL Ratio 2.3 L (3.3-5.0) mg/dL - Exam Constitutional: Present: Alert - AAO x 1, Cooperative, Elderly ENT Exam: Present: hearing grossly normal Neck: Present: supple Respiratory: Present: normal breath sounds, No rales, No wheezing Cardiovascular/Chest: Present: regular rate, rhythm, no JVD, no murmur Abdomen: Present: Normal bowel sounds, soft, nontender, nondistended Extremity: Present: no pedal edema, no calf tenderness Neurologic: Present: television production assistant II-XII nml as tested - grossly normal, alert - x1, aphasia Assessment/Plan - Problems/Diagnosis (1) CVA (cerebral vascular accident) Problem: Acute Qualifiers: CVA mechanism: unspecified Qualified Code(s): I63.9 - Cerebral infarction, unspecified Narrative: acute CVA-left frontal lobe. continue with PT/OT/ST.awaiting placement. 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
[2017-11-24] MEDS: DOXAZOSIN MESYLATE 2 MG TABLET PO SCH (21:38)
[2017-11-24] MEDS: ROSUVASTATIN CALCIUM 20 MG TABLET PO SCH (21:39)
[2017-11-24] MEDS: FINASTERIDE 5 MG TABLET PO SCH (21:39)
[2017-11-25] MEDS: DEXTROSE 5%-0.5 NORMAL SALINE 1,000 ML IV PRN (00:50)
--- NOTE | 2017-11-25 09:51 | PN ---
Progess Note - Interim Date: 11/25/17 Time: 09:49 Narrative: 11/25/17 09:49 Patient is more alert. Will need event monitor upon discharge. Awaiting NH placement.
[2017-11-25] MEDS: LISINOPRIL 10 MG TABLET PO SCH (10:23)
[2017-11-25] MEDS: ASPIRIN 81 MG TABLET.DR PO SCH (10:23)
[2017-11-25] MEDS: CLOPIDOGREL BISULFATE 75 MG TABLET PO SCH (10:23)
[2017-11-25] MEDS ORDERED: LISINOPRIL 10 MG TABLET PO ONE (11:45)
--- NOTE | 2017-11-25 14:43 | PN ---
Subjective - Date and Time Seen Date: 11/25/17 Time: 14:39 Subjective Narrative: Patient is more alert. Will need event monitor upon discharge. Awaiting NH placement Objective - Review of Systems Misc: All systems neg except as marked - Unreliable due to AMS- answers NO to my queries - Vitals Vitals: Last Vital Signs Temp 36.8 C 11/25/17 11:12 Pulse 90 11/25/17 12:08 Resp 20 11/25/17 11:12 BP 161/84 H 11/25/17 14:03 Pulse Ox 97 11/25/17 11:12 - Exam Constitutional: Present: Alert - AAo x 2 ENT Exam: Present: hearing grossly normal Respiratory: Present: normal breath sounds, No rales, No wheezing Cardiovascular/Chest: Present: regular rate, rhythm, no JVD, no murmur Abdomen: Present: Normal bowel sounds, soft, nontender, nondistended Extremity: Present: no pedal edema - AAO x 2 , no gross focal motor/sensory defiicit, no calf tenderness Assessment/Plan - Problems/Diagnosis (1) CVA (cerebral vascular accident) Problem: Acute Qualifiers: CVA mechanism: unspecified Qualified Code(s): I63.9 - Cerebral infarction, unspecified Narrative: continue with PT/OT/ST. awaitig placement. 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
[2017-11-25] MEDS: ENOXAPARIN SODIUM 40 MG/0.4 ML SYRG SC SCH (15:44)
[2017-11-25] MEDS: ROSUVASTATIN CALCIUM 20 MG TABLET PO SCH (20:29)
[2017-11-25] MEDS: DOXAZOSIN MESYLATE 2 MG TABLET PO SCH (20:29)
[2017-11-25] MEDS: FINASTERIDE 5 MG TABLET PO SCH (20:29)
[2017-11-26] MEDS: CLOPIDOGREL BISULFATE 75 MG TABLET PO SCH (08:17)
[2017-11-26] MEDS: LISINOPRIL 20 MG TABLET PO SCH (08:17)
[2017-11-26] MEDS: ASPIRIN 81 MG TABLET.DR PO SCH (08:18)
--- NOTE | 2017-11-26 10:58 | PN ---
Subjective - Date and Time Seen Date: 11/26/17 Time: 10:52 Subjective Narrative: Patient is AAO x 3. He mostly answers with yes/no. When asked if he understands me and my questions, he ays yes. When asked to do a complete sentence , he tried but was not able to do so. Has temp of 99.5. per nurse. Objective - Review of Systems Misc: All systems neg except as marked - unreliabel due to yes/no only. 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
[2017-11-26] MEDS ORDERED: ACETAMINOPHEN 325 MG TABLET PO PRN (10:59)
[2017-11-26 11:58] LABS: Anion Gap 6.1 mmol/L (6.8-13.8); BUN/Creatinine Ratio 15.7 (9.0-21.6); Calcium * 8.3 mg/dL (7.9-10.9); Potassium 4.1 mmol/L (3.4-4.6)
[2017-11-26 11:59] LABS: Hemoglobin 11.5 gm/dL (13.5-18.0)
[2017-11-26 14:46] LABS: Hematocrit 37.1 % (42.0-52.0); Mean Cell Volume 85.9 fl (78-100); Mean Corpuscular Hemoglobin 26.6 pg (27-31); Mean Platelet Volume 9.2 fl (8-11.3); Neutrophil # 3.4 K/mm3 (1.3-6.0); Platelet Count 197 K/mm3 (150-450); Red Blood Count 4.32 M/mm3 (4.7-6.0); Red Cell Distribution Width 13.8 % (11.5-14.0); White Blood Count 5.1 K/mm3 (4.0-10.5)
[2017-11-26] MEDS: ENOXAPARIN SODIUM 40 MG/0.4 ML SYRG SC SCH (15:55)
[2017-11-26] MEDS: FINASTERIDE 5 MG TABLET PO SCH (20:20)
[2017-11-26] MEDS: ROSUVASTATIN CALCIUM 20 MG TABLET PO SCH (20:20)
[2017-11-26] MEDS: DOXAZOSIN MESYLATE 2 MG TABLET PO SCH (20:20)
[2017-11-27] MEDS: LISINOPRIL 20 MG TABLET PO SCH (09:04)
[2017-11-27] MEDS: ASPIRIN 81 MG TABLET.DR PO SCH (09:04)
[2017-11-27] MEDS: CLOPIDOGREL BISULFATE 75 MG TABLET PO SCH (09:04)
--- NOTE | 2017-11-27 11:42 | PN ---
Subjective - Date and Time Seen Date: 11/27/17 Time: 11:39 Subjective Narrative: Patient NAD. Able to do 2-3 word phrases- good morning, I don't know,etc. Objective - Review of Systems Generalized/Overall Review: Reports: Weakness. Denies: Chills, Fever Respiratory: Denies: Cough, Shortness of Breath Cardiac: Denies: Chest Pain, Edema, Palpitations Abdominal: Reports: Constipation. Denies: Nausea, Vomiting Genitourinary Symptoms: Denies: Urgency, Frequency - Vitals Vitals: Last Vital Signs Temp 37.2 C 11/27/17 11:30 Pulse 92 11/27/17 11:30 Resp 18 11/27/17 11:30 BP 141/76 11/27/17 11:30 Pulse Ox 95 11/27/17 11:30 - Abnormal Lab Findings Abnormal Lab Findings: Abnormal Lab Results 11/26/17 11/26/17 Range/Units 11:42 11:42 RBC 4.32 L (4.7-6.0) M/mm3 Hgb 11.5 L (13.5-18.0) gm/dL Hct 37.1 L (42.0-52.0) % MCH 26.6 L (27-31) pg MCHC 31.0 L (32-36) g/dl Immature Gran % (Auto) 1.00 H (0.001-0.429) % Immature Gran # (Auto) 0.05 H (0.000-0.0310) K/mm3 Monocytes % 9.3 H (0.0-9) % Lymphocytes # 1.04 L (1.5-3.5) k/mm3 Anion Gap 6.1 L (6.8-13.8) mmol/L Est GFR (Non-Af Amer) 51 L (60-130) mL/min Random Glucose 154 H (70-110) mg/dL - Exam Constitutional: Present: Alert - AAo x 2, Cooperative, Elderly ENT Exam: Present: hearing grossly normal Neck: Present: supple Respiratory: Present: decreased breath sounds, No rales, No wheezing Cardiovascular/Chest: Present: regular rate, rhythm, no JVD, no murmur Abdomen: Present: Normal bowel sounds, soft, nontender, nondistended Extremity: Present: no pedal edema, no calf tenderness Neurologic: Present: other - expressive aphasia - improved Assessment/Plan - Problems/Diagnosis (1) Acute CVA (cerebrovascular accident) Problem: Acute Narrative: left frontal lobe- awaiting NH placement. 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
[2017-11-27] MEDS ORDERED: BISACODYL 5 MG TABLET.DR PO ONE (13:11)
[2017-11-27] MEDS: ENOXAPARIN SODIUM 40 MG/0.4 ML SYRG SC SCH (14:50)
[2017-11-27] MEDS: FINASTERIDE 5 MG TABLET PO SCH (20:24)
[2017-11-27] MEDS: ROSUVASTATIN CALCIUM 20 MG TABLET PO SCH (20:24)
[2017-11-27] MEDS: DOXAZOSIN MESYLATE 2 MG TABLET PO SCH (20:25)
[2017-11-27] MEDS ORDERED: BIMATOPROST 25 DROP BTL OP SCH (21:00)
[2017-11-28] MEDS: CLOPIDOGREL BISULFATE 75 MG TABLET PO SCH (08:29)
[2017-11-28] MEDS: LISINOPRIL 20 MG TABLET PO SCH (08:29)
[2017-11-28] MEDS: ASPIRIN 81 MG TABLET.DR PO SCH (08:29)
[2017-11-28] MEDS ORDERED: TIMOLOL MALEATE 50 DROP BTL OP SCH (09:00)
--- NOTE | 2017-11-28 09:26 | PN ---
Progess Note - Interim Date: 11/28/17 Time: 09:25 Narrative: 11/28/17 09:25 Still awaiting placement for rehab. Is able to make more word sentences now.
--- NOTE | 2017-11-28 10:22 | DS ---
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 BP 133 /71 on 11/28/2017 Problem: Chronic (4) Diabetes mellitus type II, controlled Narrative: on metformin. HbA1c = 6.4 % on 10/2017 Problem: Chronic (5) Hyperlipidemia Narrative: on rosuvastatin. LDL 50 on 11/2017 Problem: Chronic - Course Description of Stay: Robert Munguia is an 87-year-old white male, patient of Dr. 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 I am not able to get any history from but this history was based on the son in law's narration. The son-in-law and his went to the patient's house at around 2 PM today and the patient opened the door, however, the patient was speaking gibberish and nonsense. They sat him down and he was just staring blank and was not able to converse with them. As per his son-in- law , his told him that her sister called the patient last night around 10 PM and he was fine. The son says that he usually gets out of the house around 8 AM to visit his in the skilled nursing who also had a stroke and comes home around 9 PM. He feels since the patient was all dressed up when they got to his home that this happened after 8 AM. In the emergency room the emergency room physician could not get any history from him. His CT scan of the head without contrast showed no acute intracranial process except for a stable calcified meningioma. He was then admitted for further evaluation and treatment. His MRi done showed acute infarct of the left frontal lobe, in the territory of middle cerebral artery. He was referred to PT/OT/ST. His TTE showed negative bubble study. His telemetry while in the hospital has not shown AFib. His CUS showed questionable stenosis 50-55 % vs artifact due to tortuosity. Over the phone consult was done with neurology and [email or web address] was to continue with is ASA and Plavix, will need an event monitor, and LEEANN if possible. PT/OT/ST recommended inpatient rehab and he is now being transferred to [facility]. Consultation Done:: Dr. Grant- over the phone consult Procedures Performed: none - Medications Medications: Active Medications Acetaminophen (Tylenol) 650 mg PO Q6H PRN PRN Reason: Mild pain (pain scale 1-3) Stop: 12/26/17 11:00 Last Admin: 11/26/17 11:15 Dose: 650 mg Aspirin (Aspirin Enteric Coated) 81 mg PO DAILY JOSE Stop: 12/23/17 09:01 Last Admin: 11/28/17 08:29 Dose: 81 mg Bimatoprost (Lumigan 0.01% Ophthalmic Solution) 1 drop OP HS [facility] Stop: 12/27/17 21:01 Last Admin: 11/27/17 20:25 Dose: 1 drop Clopidogrel Bisulfate (Plavix) 75 mg PO DAILY JOSE Stop: 12/23/17 09:01 Last Admin: 11/28/17 08:29 Dose: 75 mg Doxazosin Mesylate (Cardura) 4 mg PO HS JOSE Stop: 12/22/17 21:01 Last Admin: 11/27/17 20:25 Dose: 4 mg Enoxaparin Sodium (Lovenox) 40 mg SC Q24H JOSE Stop: 12/23/17 15:46 Last Admin: 11/27/17 14:50 Dose: 40 mg Finasteride (Proscar) 5 mg PO HS JOSE Stop: 12/22/17 21:01 Last Admin: 11/27/17 20:24 Dose: 5 mg Lisinopril (Zestril) 20 mg PO DAILY JOSE Stop: 12/26/17 09:01 Last Admin: 11/28/17 08:29 Dose: 20 mg Rosuvastatin Calcium (Crestor) 20 mg PO HS JOSE Stop: 12/23/17 21:01 Last Admin: 11/27/17 20:24 Dose: 20 mg Timolol Maleate (Timoptic-Xe 0.5% Ophthalmic Suspension) 1 drop OP QAM JOSE Stop: 12/28/17 09:01 Last Admin: 11/28/17 08:30 Dose: 1 drop Discontinued Medications Bisacodyl (Dulcolax) 10 mg PO ONCE ONE Stop: 11/27/17 13:12 Last Admin: 11/27/17 13:24 Dose: 10 mg Dextrose/Sodium Chloride (Dextrose 5%-0.45%Ns) 1,000 mls @ 75 mls/hr IV .[id number] PRN PRN Reason: HYDRATION Stop: 12/22/17 17:23 Last Infusion: 11/25/17 11:22 Dose: 0 mls/hr Lisinopril (Zestril) 20 mg PO DAILY JOSE Stop: 12/23/17 09:01 Last Admin: 11/23/17 09:59 Dose: 20 mg Lisinopril (Zestril) 10 mg PO DAILY JOSE Stop: 12/24/17 09:01 Last Admin: 11/25/17 10:23 Dose: 10 mg Lisinopril (Zestril) 10 mg PO ONCE ONE Stop: 11/25/17 11:46 Last Admin: 11/25/17 12:08 Dose: 10 mg - Disposition Disposition: Inpatient Rehab Facility Condition: Stable Discharge Date: 11/28/17 Discharge Time: 10:30
--- NOTE | 2017-11-28 12:11 | DS ---
(1) Acute CVA (cerebrovascular accident) Diagnosis(s): left frontal lobe. on ASA/clopidrogel. 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 HbaA 1c in 10/2017 was 6.4 % Problem: Chronic Qualifiers: (5) Hyperlipidemia Diagnosis(s): on atorvastatin. LDL on 11/2017- Problem: Chronic Procedures Performed: none Results and Findings: Lab Pending Results 11/22/17 14:54: WBC 3.5 L, RBC 4.42 L, Hgb 12.0 L, Hct 38.4 L, MCV 86.9, MCH 27.1, MCHC 31.3 L, RDW 14.6 H, Plt Count 141 L, MPV 8.8, Immature Gran % (Auto) 0.60 H, Immature Gran # (Auto) 0.02, Neutrophils % 57.2, Lymphocytes % 24.4, Monocytes % 16.4 H, Eosinophils % 1.1, Basophils % 0.3, Nucleated RBC % 0.0, Neutrophils # 2.0, Lymphocytes # 0.85 L, Monocytes # 0.6, Eosinophils # 0.0, Absolute Basophils 0.0 11/22/17 14:54: ESR 15 H 11/22/17 14:54: PT 9.7, INR (Anticoag Therapy) 0.97, PTT ([place]) 23.3 L 11/22/17 14:54: Sodium 140, Plasma Sodium 141, Potassium 3.9, Chloride 105, Carbon Dioxide 30.7, Anion Gap 8.2, BUN 24 H, Creatinine 1.47 H, Est GFR (Non-Af Amer) 48 L, BUN/Creatinine Ratio 16.3, Random Glucose 151 H, Calcium 8.3, Calcium Adj for Albumin 8.7, Total Bilirubin 0.5, AST 14, ALT 13 L, Alkaline Phosphatase 63, Total Protein 6.2, Albumin 3.1 L 11/24/17 05:16: WBC 5.9 D, RBC 4.17 L, Hgb 11.2 L, Hct 35.6 L, MCV 85.4, MCH 26.9 L, MCHC 31.5 L, RDW 14.2 H, Plt Count 146 L, MPV 9.2, Immature Gran % (Auto) 0.30, Immature Gran # (Auto) 0.02, Neutrophils % 74.7, Lymphocytes % 13.9 L, Monocytes % 9.0, Eosinophils % 1.9, Basophils % 0.2, Nucleated RBC % 0.0, Neutrophils # 4.4, Lymphocytes # 0.82 L, Monocytes # 0.5, Eosinophils # 0.1, Absolute Basophils 0.0 11/24/17 05:16: Sodium 137, Plasma Sodium 138, Potassium 3.4, Chloride 104, Carbon Dioxide 28.5, Anion Gap 7.9, BUN 17, Creatinine 1.24, Est GFR (Non-Af Amer) 58 L D, BUN/Creatinine Ratio 13.7, Random Glucose 159 H, Calcium 7.9, C- Reactive Prot, Quant 2.6 H, Triglycerides 88, Cholesterol 118, LDL Cholesterol 50 L, VLDL Cholesterol 18, HDL Cholesterol 50, Cholesterol/HDL Ratio 2.3 L 11/26/17 11:42: WBC 5.1, RBC 4.32 L, Hgb 11.5 L, Hct 37.1 L, MCV 85.9, MCH 26.6 L, MCHC 31.0 L, RDW 13.8, Plt Count 197, MPV 9.2, Immature Gran % (Auto) 1.00 H, Immature Gran # (Auto) 0.05 H, Neutrophils % 66.0, Lymphocytes % 20.5, Monocytes % 9.3 H, Eosinophils % 2.8, Basophils % 0.4, Nucleated RBC % 0.0, Neutrophils # 3.4, Lymphocytes # 1.04 L, Monocytes # 0.5, Eosinophils # 0.1, Absolute Basophils 0.0 11/26/17 11:42: Sodium 136, Plasma Sodium 137, Potassium 4.1 D, Chloride 104, Carbon Dioxide 30.0, Anion Gap 6.1 L, BUN 22, Creatinine 1.40, Est GFR (Non-Af Amer) 51 L, BUN/Creatinine Ratio 15.7, Random Glucose 154 H, Calcium 8.3 Discharge Location: [facility] [place] Disposition: Inpatient Rehab Facility Condition: Stable Discharge Activity: Activity as tolerated Discharge Diet: Consistent carbs [facility] Therapy: Physicial Therapy, Occupation Therapy, Speech Therapy Referrals: Shayan Machuca MD [Primary Care Provider] - Additional Patient Instructions (free text): -Please make TCM appointment unless shelter discharge. Thank you! Katya @ [phone]. Follow up with PCP in 4 weeks Complete Home Medications List: Complete Home Medication List: Doxazosin Mesylate [Cardura Xl] 4 mg PO HS 09/21/13 Finasteride [Proscar] 5 mg PO HS 09/21/13 Atorvastatin Calcium 40 mg PO DAILY 02/27/15 metformin 500 mg tablet 1,000 mg PO BID #360 tab 10/14/17 aspirin 81 mg tablet,delayed release 81 mg PO DAILY tab 10/20/17 lisinopril 10 mg tablet 10 mg PO DAILY #90 tab 10/20/17 clopidogrel 75 mg tablet 75 mg PO DAILY #90 tab 10/31/17 Bimatoprost [Lumigan 0.01% Ophthalmic Solution] 1 drop OP HS 11/25/17 Timolol Maleate [Timoptic-Xe 0.5% Ophthalmic Suspension] 5 ml OP QAM 11/25/17 Acetaminophen [Tylenol] 650 mg PO Q6H PRN tablet 11/28/17
[2017-11-28 13:59] VITALS: BP 118/71
[2017-11-28] MEDS ORDERED: metFORMIN HCL 500 MG TABLET PO SCH (17:00)
== END 2017-11-28 14:45 | disposition short-term general hospital (02) | DRG 66 ==
LOC: ER 14:34 → MS 15:43
PROVIDERS: ADMIT Internal Medicine; ATTEND Internal Medicine
CPT/HCPCS: 36415; 70450; 70553; 71010; 71045; 80048; 80053; 80061; 85025; 85610; 85652; 85730; 86140; 92507; 92523; 92610; 93005; 93306; 93880; 97110; 97112; 97116; 97162; 97166; 97530; 99285